=== PATIENT | female | born 1950 | race Caucasian/White ===

== ENCOUNTER 2017-03-07 14:01 | Day surgery (SDC) | payer MEDICARE, BC ==
[~2017-03-07] VITALS: Ht 170.2 cm; Wt 85.7 kg
[~2017-03-07 14:01] MED LIST: LEVO150T7 PO; LISI-515 PO; PRAD150C PO
[2017-03-07] MEDS ORDERED: VITA100064 PO (14:44)
[2017-03-07] MEDS ORDERED: DIPH1TAB4 (14:44)
[2017-03-07] MEDS ORDERED: DILT-8 PO (14:44)
[2017-03-07] MEDS ORDERED: LORazepam 1 MG TAB SL SCH (14:45)
[2017-03-07] MEDS ORDERED: CHLORHEXIDINE GLUCONATE 2 % 1 PACK (2 CLOTHS) TOPICAL PRN (14:45)
[2017-03-07] MEDS ORDERED: INSULIN HUMAN REGULAR 1,000 UNITS/10 ML VIAL SQ PRN (14:45)
[2017-03-07] MEDS ORDERED: LEVOFLOXACIN 500 MG PREMIX INJ 100 ML IV ONE (14:45)
[2017-03-07] MEDS ORDERED: SODIUM CHLORID 0.9% 500 ML IV PRN (14:45)
[2017-03-07] MEDS ORDERED: METOPROLOL TARTRATE 25 MG TAB PO PRN (14:45)
[2017-03-07] MEDS ORDERED: POVIDONE IODINE 5% (ANTISEPSIS KIT) 4 APPLICATIONS EACH NARE PRN (14:45)
[2017-03-07] MEDS ORDERED: LACTATED RINGER'S 1000 ML IV PRN (14:45)
[2017-03-07 14:47] VITALS: BP 136/83; PULSE 90; RESP 16; TEMP 98; O2SAT 95
[2017-03-07] MEDS ORDERED: SODIUM CHLORID 0.9% 500 ML INJ 500 ML IV SCH (15:00)
[2017-03-07 15:06] LABS: BASOPHIL % 0.5 % (0.0-2.0); EOSINOPHIL # 0.1 TH/MM3 (0-0.4); EOSINOPHIL % 1.5 % (0.0-4.0); HEMATOCRIT 41.2 % (35.0-46.0); HEMO FLAGS DIFF FINAL; LYMPH % 17.6 % (9.0-44.0); LYMPHOCYTE # 1.4 TH/MM3 (1.0-4.8); MEAN CELL VOLUME 88.5 FL (80.0-100.0); MEAN CORPUSCULAR HEMOGLOBIN 28.7 PG (27.0-34.0); MEAN CORPUSCULAR HGB CONC 32.4 % (32.0-36.0); MONO % 7.6 % (0.0-8.0); NEUT % 72.8 % (16.0-70.0); PLATELET COUNT 245 TH/MM3 (150-450); RED BLOOD COUNT 4.65 MIL/MM3 (4.00-5.30); RED CELL DISTRIBUTION WIDTH 14.4 % (11.6-17.2); WHITE BLOOD COUNT 8.2 TH/MM3 (4.0-11.0)
[2017-03-07 15:22] LABS: BICARBONATE 28.5 MEQ/L (21.0-32.0); POTASSIUM 3.7 MEQ/L (3.5-5.1)
[2017-03-07 15:27] LABS: PROTHROMBIN TIME - PATIENT 10.9 SEC (9.8-11.6)
[2017-03-07] MEDS ORDERED: PROTAMINE SULFATE 50 MG/5 ML VIAL ONE ×2 (15:30→18:42)
[2017-03-07] MEDS ORDERED: FUROSEMIDE 40 MG/4 ML VIAL ONE (15:30)
[2017-03-07] MEDS ORDERED: fentaNYL CITRATE 250 MCG/5 ML AMP ONE (15:30)
[2017-03-07] MEDS ORDERED: ISOPROTERENOL HCL 1 MG/5 ML AMP ONE (15:30)
[2017-03-07] MEDS ORDERED: HEPARIN SODIUM - IV 10,000 UNITS/10 ML VIAL ONE ×2 (15:30→17:02)
[2017-03-07] MEDS ORDERED: PROPOFOL 200 MG/20 ML AMP IV ONE (15:40)
[2017-03-07] MEDS ORDERED: HEPARIN-NS/PF INJ 500 ML ONE (15:58)
[2017-03-07] MEDS ORDERED: HEPARIN-D5W INJ 250 ML ONE (17:03)
[2017-03-07] MEDS ORDERED: ONDANSETRON HCL 4 MG/2 ML VIAL IV PRN (18:30)
[2017-03-07] MEDS ORDERED: BACITRACIN OINT 0.9 GM PKT TOP ONE (18:30)
[2017-03-07] MEDS ORDERED: ATROPINE SULFATE 1 MG/ML VIAL IV PRN (18:30)
[2017-03-07] MEDS ORDERED: LORazepam 2 MG/ML VIAL IV PRN (18:30)
[2017-03-07] MEDS ORDERED: LIDOCAINE HCL 1% 50 ML VIAL INFIL PRN (18:30)
[2017-03-07] MEDS ORDERED: METOCLOPRAMIDE HCL 10 MG/2 ML VIAL IV PRN (18:30)
[2017-03-07] MEDS ORDERED: oxyCODONE/ACETAMINOPHEN 5 MG/325 MG TAB PO PRN ×2 (18:30)
[2017-03-07] MEDS ORDERED: SODIUM CHLOR 0.9% 250 ML INJ 250 ML IV PRN (18:30)
--- NOTE | 2017-03-07 18:37 | CATHPROC ---
[employer] HIS Report Study Information Study Number Admission Scheduled Start Study Start 1000-17 03/07/2017 03/07/2017 Mar 07 2017 3:25PM Referring Institution Admit Source Facility Department 1 Other [facility] - Slot Floorperson Physician and Clinical Staff Initial [facility] Rn Tamar Shaffer,RT(R) TECH2 Other Anesthesia, EPOXY FABRICATION SUPERVISOR Recorder Annia Callahan,RN Scrub Karri Ibarra,RT(R) Procedures Performed Procedure Location (Site) Vessel Name Cardioversion ICE CATHETER INSERT RA Atruim RF Ablation LT. ATRIUM LT. ATRIUM Equipment Time Dope Heater Description Size Mfg Part Number Used/Scraped NEEDLE, TRANSSEPTAL NRG 98 16:11 [facility] [id number] Used C1 [employer]/ EP 16:11 KIT, TRANSDUCER / AFIB [id number] Used PACER COVER, TRANSDUCER CABLE 16:11 [id number] [id number] Used ACUNAV 16:11 CORDIS/PACER SHEATH, FR10 BRISSA 11CM FR 10 [id number] Used 16:11 CORDIS/PACER SHEATH, FR9 BRISSA 11CM FR 9 [id number] Used [id number] 16:11 [employer] PACK, CCL CUSTOM * Used *[id number] 16:11 Adnexus PACER BASS, LIMB * 2530 Used [id number] 16:11 [employer] MEDICAL SHEATH, FR4.5 PRELUDE 11CM FR 4.5 Used [id number] 16:11 NAMIC TUBING, HIGH PRESSURE 48" 48" Used *[id number] 16:11 NAMIC TUBING, HIGH PRESSURE 48" 48" Used *[id number] 16:11 [facility] BLANKET,WARM AIR CCL * Used *[id number] CATHETER, TACTICATH ABLAT BUNDLE 16:11 [employer] Used 65 BUNDLE *[id number] BUNDLE [id number] CATHETER, FR7 OPTIMA SPIRAL 16:11 [facility] FR7 *[id number]- Used BUNDLE BUNDLE [id number] 16:11 [facility] CATHETER, JSN, QUAD BUNDLE FR 5 *[id number]- Used BUNDLE [id number] 16:11 [facility] CATHETER, JSN, QUAD BUNDLE FR 5 *[id number]- Used BUNDLE 16:11 [facility] ELECTRODE KIT, NICKY X SURFACE * [id number] Used [id number] SET, COOL POINT TUBING 16:11 [facility] *[id number]- Used BUNDLE BUNDLE 16:11 [facility] SHEATH, EPS, FR6 FAST CATH FR 6 [id number] Used 16:11 [facility] SHEATH, EPS, FR7 FAST CATH FR 7 [id number] Used 16:11 [facility] SHEATH, EPS, FR8 FAST CATH FR 8 [id number] Used SHEATH, FR8.5 STEERABLE SM 16:11 [facility] 71CM [id number] Used 71CM BUNDLE [facility] PAD, ELECTROSURGICAL 16:11 * [id number] Used SURGICAL GROUNDING (BLUE) Medication Medication Total Dose (Bolus/Oral) Medication Total Dosage/Unit 1% XYLOCAINE 40 mL HEPARIN 87378 units Medications (Bolus/Oral) Medication Time Given Dosage/Unit Administered By Reason 1% XYLOCAINE 03/07/2017 4:37:08 PM 20 mL Ehsan Gomez 20 mL 1% XYLOCAINE given in lab by Ehsan Gomez in Left Groin via Subcutaneous. 1% XYLOCAINE 03/07/2017 4:39:53 PM 20 mL Ehsan Gomez 20 mL 1% XYLOCAINE given in lab by Ehsan Gomez in Right Groin via Subcutaneous. HEPARIN 03/07/2017 4:48:02 PM 12532 units Ehsan Gomez 69351 units HEPARIN given in lab by Ehsan Gomez via Peripheral IV. HEPARIN 03/07/2017 5:04:24 PM 2000 units Anesthesia, EPOXY FABRICATION SUPERVISOR 2000 units HEPARIN given in lab by Anesthesia, EPOXY FABRICATION SUPERVISOR via Peripheral IV. Ordered by Ehsan Gomez. HEPARIN 03/07/2017 5:56:22 PM 2000 units Ehsan Gomez 2000 units HEPARIN given in lab by Ehsan Gomez via Peripheral IV. Medication (Drip) Medication Time Given Dosage/Unit Concentration/Unit Diluent (ml) Solution HEPARIN DRIP 03/07/2017 5:04:46 PM 1000 units/hr 14939 units 250 D5W 1000 units/hr HEPARIN DRIP given in lab by Ehsan Gomez via Peripheral IV. Pump/Drip Flow = 10 ml/hr using D5[place] [address] units in 250 ml. ISUPREL 03/07/2017 6:11:56 PM 20 mcg/min 1 mg 250 NaCl .9 20 mcg/min ISUPREL given in lab by Anesthesia, EPOXY FABRICATION SUPERVISOR via Peripheral IV. Pump/Drip Flow = 300 ml/hr usi ng NaCl .9 with a concentration of 1 mg in 250 ml. Initial Case Assessment Cardiovascular HR Rhythm NIBP Chest Pain 87 A FIB 121/78 0 Edema Present Skin color Skin None Normal Warm Dry Circulatory - Right Pulses Dorsalis Pedis 1 Scale (0,1,2,3,4,d) Circulatory - Left Pulses Dorsalis Pedis 1 Scale (0,1,2,3,4,d) Neurological State Oriented to time-place- Alert Moves all extremities person Respiration - General Respiration Rate SpO2 (%) (B/min) 18 95 Final Case Assessment Cardiovascular HR Rhythm NIBP Chest Pain 89 sr 100/55 0 Edema Present Skin color Skin None Normal Warm Dry Circulatory - Right Pulses Dorsalis Pedis 1 Scale (0,1,2,3,4,d) Circulatory - Left Pulses Dorsalis Pedis 1 Scale (0,1,2,3,4,d) Neurological State Oriented to time-place- Alert Moves all extremities person Respiration - General Respiration Rate SpO2 (%) O2 (lpm) (B/min) 18 97 4 Chronological Log Time Study Chronological Log 15:40:14 Patient arrived via Bed. 15:43:22 Patient Name, D.O.B, / Armband Verified By R.N. 15:43:24 Consent signed by the physician and the patient and verified by the Slot Floorperson staff. 15:43:27 Pre-op and post- op instructions given; patient acknowledges understanding of instructions. Anesthesia at bedside. Assumes care of patient. Starr Bowman SEE RECORDS FOR ALL MEDS AND VITALS D URING 15:43:28 PROCEDURE 16:06:51 Patient has been NPO for More than 6Hrs. 0630 THIS AM 16:06:58 Skin Breakdown- NONE PER PATIENT 16:07:06 Patient Warmer Placed on the Table. 16:07:07 Disposable Defibrillator Pads Placed On Patient. 16:07:07 Deana Prominences Protected 16:07:09 IV Warmer Connected To Patient. 16:07:09 A # 20 IV was noted in the Antecubital (left). Grade = 0 16:07:23 A # 20 IV was noted in the Antecubital (right). Grade = 0 16:07:31 History and physical on the chart or being dictated. Assessment: Initial Case, HR=87 BPM, Rhythm=A FIB, MARJ=101/78 mmhg, Chest Pain=0, Edema=None, Color=Normal, Skin = Warm, Dry Right Pulses: Justyn Ped=1 16:07:31 Left Pulses: Justyn Ped=1 Neurological: State=Alert, Ox3, GODOY Respiration: Resp=18 B/min, SpO2=95 % 16:07:33 Bilateral groins prepped with 2% chlorhexidine, and with a 3 min. waiting time. 16:07:36 Left Upper Chest Prepped Times Two. 16:07:37 MD paged 16:08:27 MD responded 16:21:08 Reference ECG taken Time Out. Correct patient, procedure, procedure equipment, site and side verified with physicia n present. Time 16:32:31 concurred by MD, individual staff and EPOXY FABRICATION SUPERVISOR. Time Out #2 - Consents verified, patient in correct position, all results are labled and displa yed, safety precautions 16:32:32 taken, antibiotics administered. Time out concurred by MD, individual staff and EPOXY FABRICATION SUPERVISOR in procedu re 16:32:33 Case Start 16:33:18 MARITZA IN PROGRESS 16:35:45 MARITZA COMPLETE 16:37:08 20 mL 1% XYLOCAINE given in lab by Ehsan Gomez in Left Groin via Subcutaneous. 16:37:19 Vascular access was obtained in the Fem Vein (left). 16:37:22 Vascular access was obtained in the Fem Vein (left). 16:37:22 Vascular access was obtained in the Fem Vein (left). 16:37:23 Vascular access was obtained in the Fem Vein (left). 16:37:27 A SHEATH, FR4.5 PRELUDE 11CM FR 4.5 was advanced into the Fem Art (left) using the Modified Seldinger technique. 16:37:38 A SHEATH, EPS, FR6 FAST CATH FR 6 was advanced into the Fem Vein (left) using the Modified Seldinger technique. 16:37:49 A SHEATH, EPS, FR7 FAST CATH FR 7 was advanced into the Fem Vein (left) using the Modified Seldinger technique. 16:37:53 A SHEATH, FR10 BRISSA 11CM FR 10 was advanced into the Fem Vein (left) using the Modified S eldinger technique. 16:39:53 20 mL 1% XYLOCAINE given in lab by Ehsan Gomez in Right Groin via Subcutaneous. 16:46:08 Vascular access was obtained in the Fem Vein (right). 16:46:11 A SHEATH, EPS, FR8 FAST CATH FR 8 was advanced into the Fem Vein (right) using the Percutan eous technique. A CATHETER, JSN, QUAD BUNDLE FR 5 was advanced vis Fem Vein (left) and placed in the CS. Placem ent was visually 16:46:42 confirmed under fluoroscopy. A CATHETER, JSN, QUAD BUNDLE FR 5 was advanced vis Fem Vein (left) and placed in the HIS. Place ment was 16:46:51 visually confirmed under fluoroscopy. 16:47:03 ice catheter Was Postioned. A SHEATH, FR8.5 STEERABLE SM 71CM BUNDLE 71CM was exchanged in the Fem Vein (right). This was n ecessary in 16:47:16 order to accomodate a larger catheter. 16:47:38 BAYLIS NEEDLE INSERTED 16:48:02 20070 units HEPARIN given in lab by Ehsan Gomez via Peripheral IV. 16:48:40 A eps was advanced to the right atrium and passed through the septal wall to the left atriu m. 16:48:43 BAYLIS NEEDLE REMOVED A CATHETER, FR7 OPTIMA SPIRAL BUNDLE FR7 was advanced vis Fem Vein (right) and placed in the LA . Placement 16:50:46 was visually confirmed under fluoroscopy. 16:51:01 MAPPING IN PROGRESS 16:55:31 MAPPING CATHETER REMOVED A CATHETER, TACTICATH ABLAT 65 BUNDLE was advanced vis Fem Vein (right) and placed in the LA. P lacement was 16:55:43 visually confirmed under fluoroscopy. 17:02:01 ACT (Normal Range 90-180) = 283 17:04:24 2000 units HEPARIN given in lab by Anesthesia, EPOXY FABRICATION SUPERVISOR via Peripheral IV. Ordered by Rika Gomez. 1000 units/hr HEPARIN DRIP given in lab by Ehsan Gomez via Peripheral IV. Pump/Drip Flow = 1 0 ml/hr using D5W 17:04:46 [place] [address] units in 250 ml. 17:13:03 Activated Clotting Time Drawn 17:13:39 RF Ablation of the LT. ATRIUM with a CATHETER, TACTICATH ABLAT 65 BUNDLE. 17:19:04 ACT (Normal Range 90-180) = 381 17:19:22 ABLATION CONTINUED 17:36:49 Dr. Gomez continuing ablation 17:51:24 Activated Clotting Time Drawn 17:56:13 ACT (Normal Range 90-180) = 330 17:56:22 2000 units HEPARIN given in lab by Ehsan Gomez via Peripheral IV. 18:08:25 ECG rhythm of AF noted. Patient cardioverted at 200 joules. Success 20 mcg/min ISUPREL given in lab by Yamila EPOXY FABRICATION SUPERVISOR via Peripheral IV. Pump/Drip Flow = 300 ml /hr using NaCl .9 18:11:56 with a concentration of 1 mg in 250 ml. 18:21:46 d/c isuprel 18:26:06 Catheter(s) removed without difficulty A SHEATH, FR9 BRISSA 11CM FR 9 was exchanged in the Fem Vein (right). This was necessary in or karen to minimize 18:26:11 site leakage. 18:26:38 Case End 18:26:41 Sheath(s) left in place, will be removed in Holding Area 18:26:44 Sterile dressing applied to site 18:26:44 No case complications noted. 18:26:45 Cine recording checked. 18:26:48 Bedside Report will be given. 18:26:51 PACU called. Spoke to personal secretary 18:27:20 Defibrillator and ground pads removed. Skin intact. Assessment: Final Case, HR=89 BPM, Rhythm=sr, NYLK=080/55 mmhg, Chest Pain=0, Edema=None, Luckey r=Normal, Skin = Warm, Dry Right Pulses: Justyn Ped=1 18:30:02 Left Pulses: Justyn Ped=1 Neurological: State=Alert, Ox3, GODOY Respiration: Resp=18 B/min, SpO2=97 %, O2=4 lpm 18:37:21 Patient moved to [facility] End Study - Contrast Media Used In Study Contrast Total Opened (mL) Total Used (mL) Total Wasted (mL) Unspecified 0 0 0 End Study - Radiation Exposure Fluoro Time (minutes) 1.5 End Study - Patient Disposition Complications Transferred To Interventional Outcome No Telemetry Bed successful
[2017-03-07] MEDS ORDERED: DO NOT ADM ANY ANTICOAGULANT DRUGS PRN (18:54)
[2017-03-07 20:00] VITALS: BP 111/69; PULSE 72; TEMP 97.5; O2SAT 95
[2017-03-07] MEDS: DABIGATRAN ETEXILATE 150 MG CAP PO SCH (21:34)
[2017-03-07] MEDS: AMIODARONE 200 MG TAB PO SCH (21:35)
[2017-03-07 22:00] VITALS: PULSE 72
[2017-03-07 23:00] VITALS: BP 97/64; PULSE 75; TEMP 97.8; O2SAT 96
[2017-03-08] VITALS (19 sets, daily range): BP systolic 99–131; BP diastolic 69–80; PULSE 67–99; RESP 20; TEMP 97.5–98.3; O2SAT 93–96
[2017-03-08] MEDS ORDERED: LEVOTHYROXINE SODIUM 150 MCG TAB PO SCH (06:00)
[2017-03-08 06:18] LABS: APTT (PATIENT) 32.7 SEC (24.3-30.1); INTERNATIONAL NORMALIZED RATIO 1.1 RATIO; PROTHROMBIN TIME - PATIENT 11.8 SEC (9.8-11.6)
[2017-03-08] MEDS: DABIGATRAN ETEXILATE 150 MG CAP PO SCH (08:40)
[2017-03-08] MEDS: AMIODARONE 200 MG TAB PO SCH (08:41)
[2017-03-08] MEDS ORDERED: CHOLECALCIFEROL (VIT D3) 1000 UNIT TAB PO SCH (09:00)
[2017-03-08] MEDS ORDERED: LISINOPRIL 20 MG TAB PO SCH (09:00)
[2017-03-08] MEDS ORDERED: COLCHICINE 0.6 MG TAB PO ONE (12:45)
--- NOTE | 2017-03-08 14:01 | PD.CARD ---
Atrial Fibrillation Ablation PROCEDURE DATE: March 07, 2017 PROCEDURES PERFORMED: 1. Electrophysiology study on Isuprel infusion 2. CS cannulation 3. 3-D mapping 4. Transseptal approach 5. Right and left heart catheterization 6. Intracardiac echo 7. Radiofrequency ablation of atrial fibrillation 8. Pulmonary vein isolation 9. Posterior wall ablation 10. Mitral valve isolation 11. Mitral line creation 12. Left atrial tachycardia ablation 13. Roof line creation 14. Floor line creation 15. Anterior and posterior ablation 16. Cardioversion INDICATIONS FOR THE PROCEDURE Ms. Guardado is a 66-year-old female with atrial fibrillation, very symptomatic, on anticoagulation referred for electrophysiology study and ablation. The risks, the nature and the benefits of the procedure were clearly stated to her. The risks include pneumothorax, cardiac perforation, stroke, need for open heart surgery and even . The patient understood and agreed to proceed. DESCRIPTION OF THE PROCEDURE IN DETAIL As written informed consent was obtained prior to esophageal echocardiogram, the patient was kept on the table where she was prepped and draped in the usual sterile fashion. Conscious sedation was initiated and maintained throughout the procedure by the anesthesiologist. Once sedation was verified, the right and left inguinal areas were anesthetized with 2% Xylocaine. Using modified Seldinger technique, the left femoral vein was cannulated on three occasions, three guidewires were advanced. Over the wire a 6, 7 and a 10-Faroese Hemaquet were advanced. Then the left femoral artery was cannulated on one occasion, one guidewire was advanced. Over the wire a 4-Faroese Hemaquet was advanced. Then the right femoral vein was cannulated on one occasion, one guidewire was advanced. Over the wire a 8-Faroese Hemaquet was advanced. Then under fluoroscopic guidance through the 6 and 7-Faroese Hemaquet, two 5-Faroese Papito curved quadripolar electrophysiology catheters were advanced and placed around the His as well as coronary sinus. Basic interval was measured. The patient was in atrial fibrillation. Through the 10-Faroese Hemaquet, a Cordis Kemp AcuNav intracardiac echo catheter was advanced and placed at the right atrium. Multiple view was obtained. There is pericardial effusion, pulmonary vein was seen, atrial septal was visualized. Then the 8-Faroese Hemaquet in the right femoral vein was exchanged for Agilis transseptal sheath that was placed all the way to the superior vena cava. Through the sheath a Lebron needle was advanced, then the sheath, the dilator and the needle were progressed until foci engaged. Once engaged, the needle was advanced. RF was delivered for 2 seconds. I was able to cross into the left atrium. Once the needle crossed, the dilator was advanced. Once the dilator crossed, the sheath was advanced. Once the sheath crossed, the dilator and the needle were removed. At this point I did flood the system and fluid movement was seen in the left atrium the indicates the sheath is in good position. The patient already received 8,000 units of heparin. The goal is to keep an ACT around 350 during ablation. Then through the sheath a [place] 20 pulse circumferential catheter was advanced. Using Expensify endocardial solution mapping system, a two- dimensional configuration of the left atrium was obtained. Points were taken at the left superior and inferior veins, right superior and inferior veins, mitral valve, and appendages. Then through the sheath a [facility] TactiCath 65cm 3.5mm irrigated tipped mapping and radiofrequency ablation catheter was advanced. Esophageal probe was placed temperature monitoring during ablation. When it increased to 0.5 degrees Celsius above baseline, I moved to a different area of the atrium. First I did isolate the left superior and inferior vein. I did make [place] around the veins. Posterior was ablated. Then a roof line was created, a floor line was created, a mitral line was isolated, then the mitral valve was isolated. At that point the patient was in left atrial tachycardia. I did create a line from the floor to the roof area, passing by the left atrial appendage. Then the right superior and inferior veins were isolated. I did remap the atrium. There is no significant signal in the atrium. At this point I decided to proceed with cardioversion. A 200 sync biphasic joule was delivered that converted the patient into sinus rhythm. At that point I did advance the circumferential catheter again into the vein. There was no signal into the vein, pacing from the vein showed no conduction to the atrium. Isuprel infusion was initiated at 20 mcg for over 10 minutes. No tachyarrhythmia was induced, post Isuprel no tachyarrhythmia was induced. At that point the procedure was complete. All catheters were removed, atrial septal sheath was exchanged for 9-Faroese Hemaquet, intracardiac echo showed no pericardial effusion. There is still good flow in the pulmonary vein. The patient is going to be transferred to the recovery room. No incident report. The patient tolerated the procedure. Blood loss was minimal. FINDINGS 1. Electrocardiogram: At baseline the patient was in atrial fibrillation, post procedure the patient was in sinus rhythm. 2. Basic interval: Base cycle length was around 680. Post ablation she was around 900 milliseconds. AH at 96 and HV at 46 milliseconds. 3. Tachyarrhythmia: Atrial fibrillation was mapped and ablated. Atrial tachycardia was ablated. The ablation was successful. CONCLUSION Successful electrophysiology study, mapping, radiofrequency ablation of atrial fibrillation, left atrial tachycardia, pulmonary vein isolation, posterior ablation, mitral valve isolation, mitral line creation, roof line creation, floor line creation, left atrial tachycardia, and cardioversion. COMMENTS AND RECOMMENDATIONS The patient is going to be transferred to the telemetry unit. Will be observed and when stable can be discharged home. Ehsan Gomez MD March 08, 2017 14:01
--- NOTE | 2017-03-08 14:04 | HHI.PR ---
Subjective Remarks Feeling ok. Some chest discomfort Objective Vital Signs Date Time Temp Pulse Resp B/P Pulse Ox O2 Delivery O2 Flow Rate FiO2 03/08/17 12:00 92 03/08/17 11:00 96 03/08/17 11:00 98.3 99 20 131/80 96 03/08/17 10:00 82 03/08/17 09:00 74 03/08/17 08:30 97.6 84 20 122/75 96 03/08/17 08:00 70 03/08/17 07:00 72 03/08/17 06:05 70 03/08/17 05:00 67 03/08/17 04:06 67 03/08/17 03:54 97.5 71 99/69 93 03/08/17 03:29 67 03/08/17 02:00 68 03/08/17 01:00 78 03/08/17 00:26 71 03/08/17 00:00 72 03/07/17 23:00 97.8 75 97/64 96 03/07/17 22:00 72 03/07/17 20:45 97.7 68 17 106/59 95 3 03/07/17 20:30 97.7 67 17 103/58 94 3 03/07/17 20:15 68 19 102/52 95 Nasal Cannula 3 03/07/17 20:00 66 17 99/54 95 Nasal Cannula 3 03/07/17 20:00 68 19 101/54 95 Nasal Cannula 3 03/07/17 20:00 97.5 72 111/69 95 03/07/17 19:45 71 17 96/58 95 Nasal Cannula 3 03/07/17 19:30 68 17 106/56 95 Nasal Cannula 3 03/07/17 19:15 61 21 99/56 94 Nasal Cannula 3 03/07/17 19:00 71 17 110/54 95 Nasal Cannula 3 03/07/17 18:50 97.0 74 20 113/58 95 Nasal Cannula 3 03/07/17 14:47 98.0 90 16 136/83 95 I/O 03/07/17 03/07/17 03/07/17 03/08/17 03/08/17 03/08/17 07:00 15:00 23:00 07:00 15:00 23:00 Intake Total 550 ml 240 ml Output Total 580 ml 450 ml Balance -30 ml -210 ml Intake Oral 240 ml Other 550 ml Output Urine Total 580 ml 450 ml Result Diagram: 03/07/17 1440 03/07/17 1440 Imaging Alert, fully oriented Lungs: ventilated Heart: S1, S2 regular, no gallop, no rub Abdomen: soft, no mass Ext: no edema Current Medications Medications (Trade) Dose Ordered Sig/Erin Route Start Time Stop Time Status Last Admin Lactated Ringer's 1,000 ml @ 30 mls/hr Q24H PRN IV 03/07/17 14:45 03/10/17 14:44 Sodium Chloride 500 ml @ 30 mls/hr [id number] PRN IV 03/07/17 14:45 03/10/17 14:44 (NS 500 ml Inj) 500 ml @ 30 mls/hr [id number] IV 03/07/17 15:00 (Percocet 5-325 Mg) 1 tab Q4H PRN PO 03/07/17 18:30 (Percocet 5-325 Mg) 2 tab Q4H PRN PO 03/07/17 18:30 (Ativan Inj) 0.5 mg UNSCH PRN IV 03/07/17 18:30 03/08/17 18:29 Atropine Sulfate 0.5 mg 0.5 mg UNSCH PRN IV 03/07/17 18:30 (NS 250 ml Inj) 250 ml @ 500 mls/hr ONCE PRN IV 03/07/17 18:30 03/08/17 18:29 (Reglan Inj) 10 mg Q4H PRN IV 03/07/17 18:30 (Zofran Inj) 4 mg Q4H PRN IV 03/07/17 18:30 (Xylocaine 1% Inj (50 ml)) 10 ml UNSCH PRN INFIL 03/07/17 18:30 03/08/17 18:29 (Vitamin D3) 1,000 units DAILY PO 03/08/17 09:00 03/08/17 08:41 (Pradaxa) 150 mg BID PO 03/07/17 21:00 03/08/17 08:40 (Synthroid) 150 mcg DAILY@06 PO 03/08/17 06:00 03/08/17 05:35 (Prinivil) 20 mg DAILY PO 03/08/17 09:00 03/08/17 08:40 (Cordarone) 400 mg BID PO 03/07/17 21:00 03/14/17 09:01 03/08/17 08:41 (Cordarone) 200 mg DAILY PO 03/15/17 09:00 Miscellaneous Information ALL NURSING DEPARTME... UNSCH PRN .XX 03/07/17 18:54 03/08/17 18:53 (Colchicine) 0.6 mg BID PO 03/08/17 21:00 Assessment and Plan Problem List: (1) Atrial fibrillation Status: Acute Plan: SP ablation. In sinus rhythm. Doing better Refers some chest pain. Colchicine added Will be DH. Follow up as previously scheduled (2) Palpitations Status: Acute Plan: No episode reported Ehsan Gomez MD March 08, 2017 14:04
[2017-03-08] MEDS ORDERED: AMIO200T PO (14:12)
[2017-03-08] MEDS ORDERED: AMIO400T PO (14:12)
[2017-03-08] MEDS ORDERED: COLC1CAP3 PO (14:12)
--- NOTE | 2017-03-08 16:54 | EKG ---
Date Performed: 03/08/2017 Time Performed: 06:29:56 PTAGE: 66 years EKG: Sinus rhythm Extensive ST-T changes may be due to myocardial ischemia Abnormal ECG PREVIOUS TRACING : 03/07/2017 19.40 Compared to prior tracing no significant change DOCTOR: Raffy Padilla Interpretating Date/Time 03/08/2017 16:53:05
--- NOTE | 2017-03-08 17:19 | EKG ---
Date Performed: 03/07/2017 Time Performed: 19:40:09 PTAGE: 66 years EKG: Sinus rhythm POSSIBLE LATERAL MYOCARDIAL INFARCTION , OF INDETERMINATE AGE ABNORMAL ECG PREVIOUS TRACING : 03/07/2017 14.54 Compared to the previous tracing, previous tracing was most likely arm lead reversal DOCTOR: Raffy Padilla Interpretating Date/Time 03/08/2017 17:18:27
--- NOTE | 2017-03-08 17:32 | EKG ---
Date Performed: 03/07/2017 Time Performed: 14:54:10 PTAGE: 66 years EKG: Atrial fibrillation. --- Suspect arm lead reversal - only aVF, V1-V6 analyzed --- Extensive ST-T changes are nonspecific Abnormal ECG NO PREVIOUS TRACING DOCTOR: Raffy Padilla Interpretating Date/Time 03/08/2017 17:31:00
[2017-03-08] MEDS ORDERED: COLCHICINE 0.6 MG TAB PO SCH (21:00)
[2017-03-15] MEDS ORDERED: AMIODARONE 200 MG TAB PO SCH (09:00)
== END 2017-03-08 16:09 | disposition home or self-care (01) ==
LOC: HDOC 14:01 → HDIC 14:03 → HCIS 21:45 → HDOC 03-08 16:09
PROVIDERS: ATTEND Internal Medicine Interventional Cardiology
DX: I48.0 Paroxysmal atrial fibrillation (principal); R00.2 Palpitations; I11.0 Hypertensive heart disease with heart failure; I50.9 Heart failure, unspecified; I42.9 Cardiomyopathy, unspecified
CPT/HCPCS: 80048; 85002; 85025; 85610; 85730; 86850; 86900; 86901; 92960; 93005; 93312; 93320; 93325; 93613; 93623; 93656; 93662; C1730; C1731; C1732; C1759; C1766; C2630; J1644; J1940; J1956; J2720; J3010